=== PATIENT | female | born 1940 ===

== ENCOUNTER 2017-01-31 11:30 | Day surgery (SDC) | payer MEDICARE | END 2017-01-31 11:33 | disposition home or self-care (01) | LOC: PRE-OP 11:30 | PROVIDERS: ATTEND Orthopaedic Surgery | DX: S82.842A Displaced bimalleolar fracture of left lower leg, initial encounter for closed fracture (principal); X58.XXXA Exposure to other specified factors, initial encounter; Y93.89 Activity, other specified; Y92.89 Other specified places as the place of occurrence of the external cause; Y99.8 Other external cause status; Z53.8 Procedure and treatment not carried out for other reasons ==